=== PATIENT | male | born 1985 | race Caucasian/White ===

== ENCOUNTER 2021-12-09 12:32 | Emergency (ER) | payer OTHER, BC, SELFPAY ==
[2021-12-09 12:34] VITALS: BP 129/84; PULSE 76; RESP 14; TEMP 35.9; O2SAT 98; BMI 26.4
--- NOTE | 2021-12-09 12:51 | RAD_ITS ---
HISTORY: injury -- right index. TECHNIQUE: XR Fingers Min 2 Views. COMPARISON: None. FINDINGS: BONES : No acute fracture identified. Mineralization unremarkable. JOINTS: No dislocation. Joint spaces maintained. SOFT TISSUES: Soft tissue injury of the second finger near the middle phalanx without retained radiopaque foreign body identified. RAD/Finger(s) Min 2 Views IMPRESSION: No acute fracture or dislocation identified in the right second finger. Electronically Signed: Zoraida Bucio MD at 13:58 EDT ,
--- NOTE | 2021-12-09 12:53 | EDS_ITS ---
HPI History of Present Illness Chief Complaint: Laceration Informant: patient Onset/Context/Timing Onset: Today Narrative Narrative: Patient was at work today when he got his right finger caught on a metal lo. He is right-hand dominant. He reports a recent tetanus shot, but is unsure if it was within the last 5 years. [facility] Medical History no medical history no medical history Home Medications promethazine 6.25 mg-codeine 10 mg/5 mL syrup PO 6 days #120 mL 09/10/18 [History Last Taken Unknown] Allergy/AdvReac Type Severity Reaction Status Date / Time amoxicillin Allergy Mild unknown Verified 12/09/21 12:33 Surgical History (Updated 12/09/21 @ 13:00 by Cristal Mcclellan) Hx of LASIK Social History Smoking Status: Never smoker alcohol intake: never ROS ROS ED Constitutional Constitutional ED: Denies chills or fever(s) Eyes Eyes: Denies change in vision or discharge from eye(s) ENT ENT ED: Denies discharge from eye(s), rhinorrhea or sore throat Cardiovascular Cardiovascular: Denies chest pain or palpitations Respiratory/Chest Respiratory/Chest: Denies cough or dyspnea Gastrointestinal Gastrointestinal: Denies abdominal pain, diarrhea, nausea or vomiting Genitourinary Genitourinary ED: Denies difficulty urinating or dysuria Musculoskeletal Musculoskeletal: Reports extremity pain; Denies back pain Integumentary Reports other Details: Right index finger laceration ; Denies Abrasions or rash Neurologic Neurologic: Denies headache(s) or weakness Allergic/Immunologic Allergic/Immunologic ED: Denies lip swelling or urticaria EXAM Physical Exam Const Vital Signs: 12/09/21 12:34 Temperature 96.7 F L Temperature Source Temporal Pulse Rate 76 Respiratory Rate 14 Blood Pressure 129/84 H Blood Pressure Mean 99 Pulse Ox 98 Oxygen Delivery Method Room Air Positive well nourished and well developed General Appearance ED: well developed HEENT Reports normocephalic and head/scalp atraumatic Eyes PERRL and EOMs intact bilaterally Neck supple Chest Wall inspection of chest normal and palpation of chest normal Resp normal respiratory effort and clear to auscultation bilaterally Cardio regular rate and regular rhythm GI normal to inspection, nondistended, normoactive bowel sounds Palpation: soft Extremity Extremity Narrative: 1.5 cm laceration across the middle phalanx of the right index finger, extensor surface. He is able to flex and extend the finger. He has good sensation distally with normal cap refill. Neuro oriented x3 Sensorium / Orientation: alert Psych mental status grossly normal Skin Skin Narrative: Laceration as noted above. PROC Procedures Lacerations Right index finger laceration: Length: 0.59 in Depth: Skin Shape: Linear Prep: Shure-Clens Laceration repair: Lidocaine and Nerve block Comment: Digital block of the right index finger performed with 4 cc of 1% lidocaine. Wound thoroughly cleansed and irrigated. 5 simple interrupted sutures of 5-0 nylon placed with good approximation. Dressing applied. Patient have sutures removed in 1 week. MDM MDM MDM Narrative Medical decision making narrative: For x-rays of the right index finger. Tetanus update provided. Radiography Diagnostic Testing: Clinical Impression(s) from Imaging Studies Finger X-Ray 12/09/21 12:51 IMPRESSION: No acute fracture or dislocation identified in the right second finger. Electronically Signed: Zoraida Bucio MD at 13:58 EDT , Treatment and Re-Evaluation Narrative: Right finger x-ray per my interpretation reveals no bony injury and no radiopaque foreign body. Please see procedure note for laceration repair. Discharge Plan Triage Chief Complaint: Laceration ED Provider: Lily Magana Dx/Rx/DC Orders Clinical Impression: Laceration of right index finger Instructions: ED Laceration: All Closures Prescriptions: No Action promethazine-codeine 6.25-10 mg/5 mL syrup PO 6 Days Qty: 120 Label Comments: give 5 milliliters by mouth every 6 hours if needed for cough Stand Alone Forms: Work Status Form Primary Care Provider: Donal Mejia Referrals: [facility]] - 7 Days for suture removal Donal Mejia MD [Primary Care Provider] - Disposition Disposition: Home, Self Care
[2021-12-09] MEDS: Diphth,Pertuss(Acell),Tet Vac 0.5 ML Vial IM (13:22)
[2021-12-09 14:50] VITALS: PULSE 82; RESP 17; O2SAT 97
== END 2021-12-09 14:51 | disposition home or self-care (01) ==
PROVIDERS: Emergency Provider Emergency Medicine; PCP Family Medicine; Visit Provider Emergency Medicine
DX: S61.210A Laceration without foreign body of right index finger without damage to nail, initial encounter (principal); W31.89XA Contact with other specified machinery, initial encounter; Y99.0 Civilian activity done for income or pay; Z23 Encounter for immunization
CPT/HCPCS: 12001; 73140; 90715; 99283